=== PATIENT | female | born 1965 | race Caucasian/White ===

== ENCOUNTER → 2017-02-22 | Outpatient (CLI) | payer BC ==
--- NOTE | 2017-02-23 08:56 | MM ---
Reason for exam: screening (asymptomatic). Last mammogram was performed 2 years and 4 months ago. History: Patient is postmenopausal. Physical Findings: A clinical breast exam by your physician is recommended on an annual basis and results should be correlated with mammographic findings. MG Screening Mammo w CAD Bilateral CC and MLO view(s) were taken. Prior study comparison: October 23, 2014, bilateral MG screening mammo w CAD. December 29, 2009, bilateral digital screening mammogram. There are scattered fibroglandular densities. Focal distortion central right breast. ASSESSMENT: Incomplete: need additional imaging evaluation, BI-RAD 0 RECOMMENDATION: Special view mammogram of the right breast. If lesion persists on supplemental views, image directed ultrasound is recommended. [facility] will attempt to contact patient to return for supplemental views and ultrasound if indicated.
== END | disposition home or self-care (01) ==
LOC: RADMAMWWP 13:35
PROVIDERS: ATTEND Family Medicine
DX: Z12.31 Encounter for screening mammogram for malignant neoplasm of breast (principal); R92.8 Other abnormal and inconclusive findings on diagnostic imaging of breast

== ENCOUNTER → 2017-02-25 | Outpatient (CLI) | payer BC ==
--- NOTE | 2017-02-28 09:42 | MM ---
Reason for exam: additional evaluation requested from abnormal screening. Last mammogram was performed less than 1 month ago. History: Patient is postmenopausal. Physical Findings: Nurse did not find any significant physical abnormalities on exam. MG Work Up Mamm w CAD RT ML, spot compression MLO, and spot compression CC view(s) were taken of the right breast. Prior study comparison: February 22, 2017, bilateral MG screening mammo w CAD. October 23, 2014, bilateral MG screening mammo w CAD. Finding: There is a 8 mm equal density (isodense) mass in the subareolar central position of the right breast. These results were verbally communicated with the patient and result sheet given to the patient on 02/25/17. ASSESSMENT: Suspicious, BI-RAD 4 RECOMMENDATION: Stereotactic core biopsy of the right breast. Called Dr. Meyers with mammographic findings and has scheduled an appointment for the patient for 03/14/17 at 9:[address] Orr. PRELIMINARY REPORT CALLED AND FAXED TO DR. ORR ON 02/28/17 AT 300/TP.
== END | disposition home or self-care (01) ==
LOC: RADMAMWWP 15:00
PROVIDERS: ATTEND Family Medicine
DX: R92.8 Other abnormal and inconclusive findings on diagnostic imaging of breast (principal)

== ENCOUNTER → 2017-03-18 | Day surgery (SDC) | payer BC ==
--- NOTE | 2017-03-18 09:02 | MM ---
EXAMINATION TYPE: MG discontinued stereo core RT DATE OF EXAM: 03/18/2017 8:36 AM COMPARISON: 02/25/2017 and 02/22/2017 CLINICAL HISTORY: 51-year-old female abnormal mammogram referred for stereotactic core needle biopsy of the right TECHNIQUE and FINDINGS: The patient was placed in MLO compression on the stereotactic table. Breast tissue landmarks were uti lized to ensure the appropriate area was positioned within the target window. A target for biopsy cou ld not be secured. Stereotactic guided core biopsy was discontinued. Recommend ultrasound of the lower outer quadrant right breast for further evaluation. If no sonograph ic abnormality is seen, a 6 month follow-up mammogram will be recommended. Findings and impression were discussed with the patient. IMPRESSION: BI-RADS 0-incomplete assessment RECOMMENDATION: Targeted right breast ultrasound lower outer quadrant 6:00 to 9:00.
--- NOTE | 2017-03-21 11:41 | USB ---
Reason for exam: additional evaluation requested from abnormal screening. History: Patient is postmenopausal. MG discontinued stereo core RT of the right breast, March 18, 2017. US Breast Limited RT Right breast ultrasound demonstrates no cystic or solid lesion seen. The mammographic finding cab be reassessed in 6 months. These results were verbally communicated with the patient and result sheet given to the patient on 03/18/17. ASSESSMENT: Probably benign, BI-RAD 3 RECOMMENDATION: Follow-up diagnostic mammogram of the right breast in 6 months.
== END ==
LOC: RADMAMWWP 07:40
PROVIDERS: ATTEND Surgery
DX: R92.8 Other abnormal and inconclusive findings on diagnostic imaging of breast (principal); Z53.8 Procedure and treatment not carried out for other reasons; Z78.0 Asymptomatic menopausal state

== ENCOUNTER 2017-09-20 08:00 | Day surgery (SDC) | payer BC ==
[2017-09-16 11:55] VITALS: BMI 24.4
[2017-09-20 08:12] VITALS: TEMP 97.2
[2017-09-20] MEDS ORDERED: LIDOCAINE 1% 20 ML VIAL (10MG/ML) FOR IV START INTRADERMA ONE (08:12)
[2017-09-20] MEDS: LACTATED RINGERS 1,000 ML IV SCH ×2 (08:12→09:09)
[2017-09-20] MEDS ORDERED: LIDOCAINE 1% INJ 10MG/ML (20 ML MDV) ONE (09:11)
[2017-09-20] MEDS ORDERED: PROPOFOL 10 MG/ML 20 ML VIAL IV ONE (09:11)
--- NOTE | 2017-09-20 09:42 | P.PCN ---
Date of Procedure: 09/20/17 Procedure(s) Performed: Procedure: Total colonoscopy. Preoperative diagnosis: Screening for neoplasia. Postoperative diagnosis: Examination within normal limits. Preparation: HalfLytely prep. Sedation: Was provided by anesthesia. Brief clinical history: The patient is a 52-year-old female who is referred for this evaluation for screening for neoplasia age being her risk factor. She has no abdominal complaints or family history of colon cancer. She did have a diarrheic illness within the last few weeks and she had some bleeding around that time but she is now back to her usual 1 regular bowel movement a day. Procedure: With the patient on her left lateral decubitus position and after informed consent and adequate sedation, the perianal area was inspected and it did not show any fissures or fistulas. There were no masses felt on digital rectal examination. The Olympus CFQ 160L video colonoscope was then inserted in the rectum in the usual fashion and advanced to the cecum. The preparation was good. The mucosa appeared healthy. No polyps or tumors were seen or any obvious diverticular disease or other potential sources of bleeding. The patient tolerated the procedure well. Plan: The patient was reassured. She will follow-up with you as planned and I recommended repeat exam in 10 years.
[2017-09-20 10:03] VITALS: BP 115/71; PULSE 72; RESP 18
== END 2017-09-20 10:08 | disposition home or self-care (01) ==
LOC: ORWHC2ENDO 08:00
DX: Z12.11 Encounter for screening for malignant neoplasm of colon (principal); I10 Essential (primary) hypertension; Z79.899 Other long term (current) drug therapy; Z87.891 Personal history of nicotine dependence
CPT/HCPCS: J2001; J2704; G0121

== ENCOUNTER → 2018-01-19 | Outpatient (CLI) | payer BC ==
--- NOTE | 2018-01-19 12:12 | MM ---
Reason for exam: follow-up at short interval from prior study. Last mammogram was performed 11 months ago. History: Patient is postmenopausal. MG discontinued stereo core RT of the right breast, March 18, 2017. Physical Findings: Nurse did not find any significant physical abnormalities on exam. MG Diagnostic Mammo RT w CAD CC and MLO view(s) were taken of the right breast. Prior study comparison: February 25, 2017, right breast MG work up mamm w CAD RT. February 22, 2017, bilateral MG screening mammo w CAD. There are scattered fibroglandular densities. The central asymmetric density on MLO is unchanged from 2014. This completely disperses on spot MLO view. These results were verbally communicated with the patient and result sheet given to the patient on 01/19/18. ASSESSMENT: Negative, BI-RAD 1 RECOMMENDATION: Routine screening mammogram of both breasts in 6 months.
== END | disposition home or self-care (01) ==
LOC: RADMAMWWP 09:09
PROVIDERS: ATTEND Family Medicine
DX: R92.8 Other abnormal and inconclusive findings on diagnostic imaging of breast (principal)
CPT/HCPCS: 77065

== ENCOUNTER 2018-09-24 13:45 | Emergency (ER) | payer BC ==
[2018-09-24 13:51] VITALS: BP 132/83; PULSE 95; RESP 18
--- NOTE | 2018-09-24 14:40 | ED ---
General Adult HPI - General Chief complaint: Extremity Problem,Nontraumatic Stated complaint: lt hand swelling & pain Time Seen by Provider: 09/24/18 14:05 Source: patient, RN notes reviewed Mode of arrival: ambulatory Limitations: no limitations - History of Present Illness Initial comments: 53-year-old female presents to the emergency department for a chief complaint of left hand pain and erythema 2 days. Patient states pain is worse in the distal aspect of the left fifth metacarpal. She states it is painful to press on. She denies any pain in the wrist. She denies any pain in the palmar aspect of the left hand. She denies any fevers or chills at home. Patient denies any history of diabetes. She denies any injuries to the left hand. Patient has no other complaints at this time including shortness of breath, chest pain, abdominal pain, nausea or vomiting, headache, or visual changes. - Related Data Home Medications Medication Instructions Recorded Confirmed Hydrochlorothiazide [Hydrodiuril] 25 mg PO DAILY 05/02/16 09/20/17 Loratadine [Claritin] 10 mg PO DAILY 05/02/16 09/20/17 Previous Rx's Medication Instructions Recorded Cephalexin [Keflex] 500 mg PO Q6HR 10 Days cap 09/24/18 Allergies Allergy/AdvReac Type Severity Reaction Status Date / Time No Known Allergies Allergy Verified 09/24/18 13:51 Review of Systems ROS Statement: Those systems with pertinent positive or pertinent negative responses have been documented in the HPI. ROS Other: All systems not noted in ROS Statement are negative. Past Medical History Past Medical History: Hypertension Additional Past Medical History / Comment(s): DDD, HX OF BLOOD IN STOOL. History of Any Multi-Drug Resistant Organisms: None Reported Past Surgical History: Section Additional Past Surgical History / Comment(s): X3, ENDOMETRIOSIS SURGERY. Past Anesthesia/Blood Transfusion Reactions: No Reported Reaction Past Psychological History: No Psychological Hx Reported Smoking Status: Current some day smoker Past Alcohol Use History: Occasional Past Drug Use History: None Reported - Past Family History Father Family Medical History: Cancer Additional Family Medical History / Comment(s): ESOPHAGEAL CANCER General Exam Limitations: no limitations General appearance: alert, in no apparent distress Head exam: Present: atraumatic, normocephalic, normal inspection Eye exam: Present: normal appearance, PERRL, EOMI. Absent: scleral icterus, conjunctival injection, periorbital swelling ENT exam: Present: normal exam, mucous membranes moist Neck exam: Present: normal inspection, full ROM. Absent: tenderness, meningismus, lymphadenopathy Respiratory exam: Present: normal lung sounds bilaterally. Absent: respiratory distress, wheezes, rales, rhonchi, stridor Cardiovascular Exam: Present: regular rate, normal rhythm, normal heart sounds. Absent: systolic murmur, diastolic murmur, rubs, gallop, clicks Extremities exam: Present: full ROM (Full Range motion of the left hand and wrist. Full range of motion of all fingers in the left hand.), tenderness ( Mild tenderness over the dorsal fifth metacarpal of the left hand), normal capillary refill (Capillary refill less than 2 seconds and radial pulse 2+ in the left upper extremity), other (Erythema noted of the left dorsal fifth metacarpal x-ray from the DIP joint to the wrist. No streaking redness or evidence of lymphangitis. Area is warm to touch and mildly tender.) Neurological exam: Present: alert, oriented X3, CN II-XII intact Psychiatric exam: Present: normal affect, normal mood Course Vital Signs 09/24/18 13:48 Temperature 98.1 F Pulse Rate 95 Respiratory 18 Rate Blood Pressure 132/83 O2 Sat by Pulse 98 Oximetry Medical Decision Making - Medical Decision Making 53-year-old female presents to the emergency department for a chief complaint erythema to the dorsal fifth metacarpal of the left hand 2 days. As her stable and patient is afebrile. She is well-appearing alert and responsive. Patient has full range motion the left hand. No pain with flexion or extension actively or passively of the fifth digit. No suspicion of tenosynovitis at this time. Neurovascular intact. X-ray was negative aside for calcification of possible or injury. She'll be given Keflex. She was educated to watch for any worsening symptoms and did discuss to watch for symptoms of tenosynovitis or fever and to return if these occur. She will follow up with primary care in 1-[address] Byrnes also saw the patient Disposition Clinical Impression: Cellulitis Disposition: HOME SELF-CARE Condition: Good Instructions: Cellulitis (ED) Additional Instructions: Please follow up with neurobiologist in 1-2 days. Please take antibiotic as directed. Please return if you have any worsening symptoms or fevers. Prescriptions: Cephalexin [Keflex] 500 mg PO Q6HR 10 Days cap Is patient prescribed a controlled substance at d/c from ED?: No Referrals: Sade Meyers MD [Primary Care Provider] - 1-2 days Time of Disposition: 16:12
--- NOTE | 2018-09-24 15:32 | XR ---
EXAMINATION TYPE: XR wrist complete LT DATE OF EXAM: 09/24/2018 COMPARISON: NONE HISTORY: Wrist pain TECHNIQUE: 4 views FINDINGS: The carpal bones appear intact. I see no fracture nor dislocation. There is a 4 mm calcific ation at the fifth carpometacarpal joint that could relate to an old injury. Joint spaces are fairly normal. Distal radius and ulna appear intact. IMPRESSION: No acute abnormality of the left wrist.
--- NOTE | 2018-09-24 15:33 | XR ---
EXAMINATION TYPE: XR hand complete LT DATE OF EXAM: 09/24/2018 COMPARISON: NONE HISTORY: Pain and swelling TECHNIQUE: 3 views FINDINGS: Metacarpals are intact. I see no fracture nor dislocation. There is minor spurring at the f irst carpometacarpal joint. There is rounded calcification at the fifth carpometacarpal joint consist ent with old injury. IMPRESSION: No acute abnormality of the left hand.
[2018-09-24 16:18] VITALS: TEMP 98
== END 2018-09-24 16:17 | disposition home or self-care (01) ==
LOC: EC 13:45
DX: L03.114 Cellulitis of left upper limb (principal); I10 Essential (primary) hypertension; F17.200 Nicotine dependence, unspecified, uncomplicated; Z79.899 Other long term (current) drug therapy
CPT/HCPCS: 99283

== ENCOUNTER → 2019-06-19 | Outpatient (CLI) | payer BC ==
[2019-06-19 16:06] LABS: Basophils % (A) 1 %; Eosinophils # (A) 0.2 k/uL (0-0.7); Eosinophils % (A) 3 %; HCT 40.2 % (34.0-46.0); Lymphocytes # (A) 2.2 k/uL (1.0-4.8); Lymphocytes % (A) 36 %; MCH 28.9 pg (25.0-35.0); MCHC 32.4 g/dL (31.0-37.0); MCV 89.4 fL (80.0-100.0); Mean Platelet Volume 7.2; Monocytes # (A) 0.3 k/uL (0-1.0); Monocytes % (A) 4 %; Neutrophils # (A) 3.2 k/uL (1.3-7.7); Neutrophils % (A) 53 %; Platelet Count 315 k/uL (150-450); RDW 13.6 % (11.5-15.5); WBC 6.1 k/uL (3.8-10.6)
[2019-06-19 16:16] LABS: African American GFR (CKD) >90 (>60 ml/min/1.73 sqM); Anion Gap 8 mmol/L; Blood Urea Nitrogen 10 mg/dL (7-17); Carbon Dioxide 27 mmol/L (22-30); Chloride 107 mmol/L (98-107); Glucose 99 mg/dL (74-99); Potassium 4.4 mmol/L (3.5-5.1); Sodium 142 mmol/L (137-145)
== END | disposition home or self-care (01) ==
LOC: LABPAT 15:34
PROVIDERS: ATTEND Obstetrics & Gynecology
DX: Z01.818 Encounter for other preprocedural examination (principal); Z01.812 Encounter for preprocedural laboratory examination; I10 Essential (primary) hypertension; N81.6 Rectocele
CPT/HCPCS: 36415; 80051; 82565; 82947; 84520; 85025; 86850; 86900; 86901; 87086; 93005

== ENCOUNTER 2019-06-25 08:11 | Day surgery (SDC) | payer BC ==
[~2019-06-25 08:11] MED LIST: DEXAMETHASONE SOD PHOSPHATE 10 MG/ML 1 ML VIAL IV ONE; HYDROmorphone 0.5 MG/0.5 ML SYRINGE IVP PRN; MIDAZOLAM 2 MG/2 ML VIAL IV PRN; ONDANSETRON 4 MG/2 ML VIAL IVP ONE
[2019-06-25] MEDS ORDERED: LACTATED RINGERS 1,000 ML IV ONE (08:30)
[2019-06-25] MEDS ORDERED: SIMETHICONE 80 MG CHEWABLE PO PRN (09:44)
[2019-06-25] MEDS ORDERED: MIDAZOLAM 2 MG/2 ML VIAL ONE (09:44)
[2019-06-25] MEDS ORDERED: PROPOFOL 10 MG/ML 20 ML VIAL IV ONE (09:44)
[2019-06-25] MEDS ORDERED: fentaNYL (PF) 50 MCG/ML 2 ML AMP ONE (09:44)
[2019-06-25] MEDS ORDERED: diphenhydrAMINE 50 MG/ML 1 ML VIAL IVP PRN (09:44)
[2019-06-25] MEDS ORDERED: KETOROLAC 30 MG/ML 1 ML VIAL IVP PRN (09:44)
[2019-06-25] MEDS ORDERED: Acetaminophen-Codeine 300-30mg TAB PO PRN ×2 (09:44)
[2019-06-25] MEDS ORDERED: KETOROLAC 30 MG/ML 1 ML VIAL ONE (09:44)
[2019-06-25] MEDS ORDERED: IBUPROFEN 600 MG TAB PO PRN (09:44)
[2019-06-25] MEDS ORDERED: LIDOCAINE 1% INJ 10MG/ML (20 ML MDV) ONE (09:44)
[2019-06-25] MEDS ORDERED: ONDANSETRON 4 MG/2 ML VIAL IVP PRN (09:44)
[2019-06-25] MEDS ORDERED: METOCLOPRAMIDE 5 MG/ML 2 ML VIAL IVP PRN (09:44)
[2019-06-25] MEDS ORDERED: SODIUM CHLORIDE 0.9% 100 ML with ceFAZolin 2,000 MG IV ONE ×2 (09:56)
[2019-06-25] MEDS ORDERED: VASOPRESSIN 20 UNIT/ML 1 ML VIAL SQ ONE (10:03)
[2019-06-25] MEDS ORDERED: BACITRACIN 500 UNIT/GM OINT 28.4 GM TUBE TOPICAL ONE ×2 (10:08→10:19)
--- NOTE | 2019-06-25 10:30 | P.OP ---
Date of Procedure: 06/25/19 Preoperative Diagnosis: #1. Symptomatic grade 3+ rectocele Postoperative Diagnosis: Same Procedure(s) Performed: #1. Rectocele repair Anesthesia: other (Gen. by LMA) Surgeon: Juancarlos Berman Senior Media Planner #1: Aaliyah Bowman Estimated Blood Loss (ml): 20 IV fluids (ml): 400 Urine output (ml): 50 Pathology: none sent Condition: stable Disposition: PACU Operative Findings: Preoperative pelvic examination confirmed the findings noted in H&P with a grade 3+ rectocele present but otherwise good support of the uterus and bladder. Description of Procedure: The patient was prepped and draped in usual fashion after general anesthesia was administered by the anesthesiologist. The bladder was draining approximately 40 mL of clear tamiko urine. The margins of the hymeneal ring were grasped at the intended site of closure bilaterally in a triangular shape wedge of skin on the perineal body removed with a scalpel. The rectovaginal mucosa was infused with diluted vasopressin solution from the perineum to the apex of the intended repair at the top of the vagina. The mucosa was then undermined in the midline and divided using Metzenbaum scissors to the apex with Allis clamps placed along the margins on each side. The mucosa was dissected sharply and bluntly from the underlying tissues. After adequate dissection had been carried out bilaterally, serial Arianna plication stitches were placed from the apex of the repair to the perineum using 2-0 PDS. Any small points of bleeding were made hemostatic with the Bovie. Once the repair been completed, the redundant vaginal mucosa was trimmed and the mucosa closed with a running locking stitch of 2-0 Vicryl and perineal repair was continuous with the vaginal U Koza closure using the 2-0 Vicryl in standard fashion. The vagina was packed with one-inch iodophor covered with bacitracin ointment and the bladder catheterized with a Larsen catheter at which time clear urine was again noted. All sponge, instrument, needle counts were correct. There were no complications. The patient tolerated the procedure well and proceeded to the recovery room in stable condition.
[2019-06-25] MEDS: LACTATED RINGERS 1,000 ML IV SCH ×3 (11:50→20:00)
[2019-06-25 15:15] VITALS: BMI 24.3
[2019-06-25] MEDS: SENNOSIDES-DOCUSATE SODIUM 1 EACH TAB PO SCH (21:11)
[2019-06-26] MEDS: LACTATED RINGERS 1,000 ML IV SCH ×2 (06:26→06:27)
[2019-06-26 07:42] LABS: Basophils % (A) 0 %; Eosinophils % (A) 0 %; HCT 36.2 % (34.0-46.0); HGB 11.8 gm/dL (11.4-16.0); Lymphocytes # (A) 2.1 k/uL (1.0-4.8); Lymphocytes % (A) 19 %; MCH 29.6 pg (25.0-35.0); MCHC 32.7 g/dL (31.0-37.0); MCV 90.5 fL (80.0-100.0); Mean Platelet Volume 7.6; Monocytes # (A) 0.6 k/uL (0-1.0); Monocytes % (A) 5 %; Neutrophils # (A) 8.3 k/uL (1.3-7.7); Neutrophils % (A) 74 %; Platelet Count 302 k/uL (150-450); RDW 14.9 % (11.5-15.5); WBC 11.3 k/uL (3.8-10.6)
[2019-06-26 08:14] VITALS: BP 109/71; PULSE 84; RESP 18; TEMP 98.1
[2019-06-26] MEDS: SENNOSIDES-DOCUSATE SODIUM 1 EACH TAB PO SCH (08:15)
--- NOTE | 2019-06-26 08:26 | P.DS ---
Providers Expected date of discharge: 06/26/19 Attending physician: Juancarlos Berman Primary care physician: Sade Meyers - Discharge Diagnosis(es) (1) Rectocele Current Visit: Yes Status: Acute Hospital Course: The patient is a 53-year-old multiparous woman who was referred after an incidental finding of a rectocele at routine annual examination. Examination before out a grade 3+ rectocele present with no significant cystocele or uterine prolapse of any kind. The patient requested surgical repair was taken the operating room where she underwent a rectocele repair and an incompetent fashion. Her postoperative course was uncomplicated as well with vital signs being stable and her temperature was afebrile throughout. She was tolerating regular diet by the afternoon of surgery and had her packing and catheter removed the following morning. She was deemed stable for discharge on postoperative day #1 was discharged home to follow-up in the office in 2 weeks for recheck in 6 weeks routinely. Discharge instructions included calling for any significantly increased bleeding, fever, pain, problems with the repair, or anything else that concerned her. She is additionally instructed to do no heavy lifting over the next 6 weeks of anything greater than approximate 10 pounds and to abstain from intercourse over the same period of time. She understood all of her instructions and agrees follow up as noted above. Discharge medications included only her home medications as well as [id number] analgesic pain medications as needed. Hemoglobin and hematocrit were entirely stable from preoperative evaluation. Procedures: #1. Rectocele repair Patient Condition at Discharge: Good Plan - Discharge Summary Discharge Rx Participant: No New Discharge Prescriptions: No Action Loratadine [Claritin] 10 mg PO DAILY Hydrochlorothiazide [Hydrodiuril] 25 mg PO DAILY Lisinopril [Zestril] 10 mg PO DAILY Red Yeast Rice 600 mg PO DAILY Multivitamin/Iron/Folic Acid [Centrum Women Tablet] 1 each PO DAILY Discharge Medication List Hydrochlorothiazide [Hydrodiuril] 25 mg PO DAILY 05/02/16 [History] Loratadine [Claritin] 10 mg PO DAILY 05/02/16 [History] Lisinopril [Zestril] 10 mg PO DAILY 06/20/19 [History] Multivitamin/Iron/Folic Acid [Centrum Women Tablet] 1 each PO DAILY 06/20/19 [History] Red Yeast Rice 600 mg PO DAILY 06/20/19 [History] Follow up Appointment(s)/Referral(s): Juancarlos Berman MD [STAFF PHYSICIAN] - 2 Weeks Patient Instructions/Handouts: Posterior Vaginal Repair (DC), Pain Management After Surgery (DC) Activity/Diet/Wound Care/Special Instructions: No lifting, no tub baths, no sexual intercourse, nothing in the vagina. May shower. Call Dr Berman if you have fever, chills, increase pain, vaginal bleeding, or if you have any other concerns or questions. May use over the counter stool softener. Discharge Disposition: HOME SELF-CARE
[2019-06-26] MEDS ORDERED: HYDROCHLOROTHIAZIDE 25 MG TAB PO SCH (09:00)
[2019-06-26] MEDS ORDERED: LISINOPRIL 10 MG TAB PO SCH (09:00)
== END 2019-06-26 09:10 | disposition home or self-care (01) ==
LOC: OR 08:11 → 6PED 10:34 → OR 06-26 09:10
PROVIDERS: ATTEND Obstetrics & Gynecology
DX: N81.6 Rectocele (principal); I10 Essential (primary) hypertension; B00.9 Herpesviral infection, unspecified; F17.210 Nicotine dependence, cigarettes, uncomplicated; Z79.899 Other long term (current) drug therapy
CPT/HCPCS: 57250; 85025; J2250; J1100; J2405; J0690; J2001; J3010; J1885; J2704; 86850; 86900; 86901

== ENCOUNTER 2020-04-07 18:36 | Emergency (ER) | payer BC ==
[2020-04-07 18:42] VITALS: BP 137/82; PULSE 77; RESP 18; TEMP 98.7
[2020-04-07] MEDS ORDERED: LIDOCAINE 5% PATCH TOPICAL STA (18:54)
--- NOTE | 2020-04-07 18:59 | ED ---
General Adult HPI - General Chief complaint: Back Pain/Injury Stated complaint: L Ribs Pain Time Seen by Provider: 04/07/20 18:44 Source: patient, RN notes reviewed Mode of arrival: ambulatory Limitations: no limitations - History of Present Illness Initial comments: 54-year-old female with a past medical history of hypertension, degenerative disc disease presents to the emergency department for a chief complaint of left anterior lower rib pain. Patient states that a couple days ago she was painting a car be. States that she was leaning on the edge of the wall when she felt a sudden pain in her left anterior ribs. States has been painful since that time. She is a hurts to breathe in the areas. States it hurts to lean forward or twist. States when there is any pressure applied to the area it causes pain. Denies any abdominal pain. Denies chest pain. Patient denies any other injuries. States her wanted her to come to the emergency room.Patient has no other complaints at this time including shortness of breath, chest pain, abdominal pain, nausea or vomiting, headache, or visual changes. - Related Data Home Medications Medication Instructions Recorded Confirmed Hydrochlorothiazide [Hydrodiuril] 25 mg PO DAILY 05/02/16 06/25/19 Loratadine [Claritin] 10 mg PO DAILY 05/02/16 06/25/19 Lisinopril [Zestril] 10 mg PO DAILY 06/20/19 06/25/19 Multivitamin/Iron/Folic Acid 1 each PO DAILY 06/20/19 06/25/19 [Centrum Women Tablet] Red Yeast Rice 600 mg PO DAILY 06/20/19 06/25/19 Allergies Allergy/AdvReac Type Severity Reaction Status Date / Time No Known Allergies Allergy Verified 04/07/20 18:42 Review of Systems ROS Statement: Those systems with pertinent positive or pertinent negative responses have been documented in the HPI. ROS Other: All systems not noted in ROS Statement are negative. Past Medical History Past Medical History: Hypertension Additional Past Medical History / Comment(s): DDD, HX OF BLOOD IN STOOL. History of Any Multi-Drug Resistant Organisms: None Reported Past Surgical History: Section Additional Past Surgical History / Comment(s): X3, ENDOMETRIOSIS SURGERY. bilateral eye procedures for glaucoma Past Anesthesia/Blood Transfusion Reactions: No Reported Reaction Past Psychological History: No Psychological Hx Reported Smoking Status: Former smoker Past Alcohol Use History: Occasional Past Drug Use History: None Reported - Past Family History Father Family Medical History: Cancer Additional Family Medical History / Comment(s): ESOPHAGEAL CANCER General Exam Limitations: no limitations General appearance: alert, in no apparent distress Head exam: Present: atraumatic, normocephalic, normal inspection Eye exam: Present: normal appearance, PERRL, EOMI. Absent: scleral icterus, conjunctival injection, periorbital swelling ENT exam: Present: normal exam, mucous membranes moist Neck exam: Present: normal inspection, full ROM. Absent: tenderness, meningismus, lymphadenopathy Respiratory exam: Present: normal lung sounds bilaterally, chest wall tenderness (Patient has left anterior inferior costal margin tenderness. There is no ecchymosis. No tenting.). Absent: respiratory distress, wheezes, rales, rhonchi, stridor Cardiovascular Exam: Present: regular rate, normal rhythm, normal heart sounds. Absent: bradycardia, tachycardia, irregular rhythm GI/Abdominal exam: Present: soft, normal bowel sounds. Absent: distended, tenderness (No left upper quadrant or abdominal tenderness.), guarding, rebound, rigid Neurological exam: Present: alert Course Vital Signs 04/07/20 18:39 Temperature 98.7 F Pulse Rate 77 Respiratory 18 Rate Blood Pressure 137/82 O2 Sat by Pulse 98 Oximetry Medical Decision Making - Medical Decision Making Vitals are stable. HPI and physical exam as documented. No respiratory distress. X-ray of the chest with left rib study shows no acute processes. No evidence for pneumothorax. Patient likely has contusion of the costal margin. Patient did not want any IM or oral pain medications throughout her stay. States it did not hurt when she is not moving. She did agree to a lidocaine patch. Patient was given incentive spirometer by respiratory. Discussed taking deep breaths 10 times per hour to prevent pneumonia. Discussed taking Tylenol f or pain. She is not on any additional pain medications. She will return for any worsening symptoms. Otherwise she'll follow-up with primary care. Disposition Clinical Impression: Contusion of rib on left side Disposition: HOME SELF-CARE Condition: Good Instructions (If sedation given, give patient instructions): Rib Contusion (ED) Additional Instructions: Please take Tylenol for pain. Use lidocaine patches as directed. Apply one patch for 12 hours and then remove for 12 hours before applying the second patch. Use inceptive spirometer every hour while awake. Return to the emergency room for any worsening symptoms. Is patient prescribed a controlled substance at d/c from ED?: No Referrals: Sade Meyers MD [Primary Care Provider] - 1-2 days Time of Disposition: 19:23
--- NOTE | 2020-04-07 19:18 | XR ---
EXAMINATION TYPE: XR ribs LT w pa chest x-ray DATE OF EXAM: 04/07/2020 CLINICAL HISTORY: Chest and left-sided rib pain for 3 days. TECHNIQUE: Single frontal view of the chest is obtained. A frontal and oblique images of the left-sneha ed ribs. COMPARISON: None FINDINGS: There is chronic painful change without suspicious new focal air space opacity, pleural ef fusion, or pneumothorax seen. The cardiac silhouette size is within normal limits. The osseous str uctures are intact. Dedicated images of left-sided ribs show no acute displaced fractures. Overlying soft tissue is unrem arkable. IMPRESSION: 1. No acute cardiopulmonary process. 2. No acute displaced left-sided rib fractures are seen.
== END 2020-04-07 19:43 | disposition home or self-care (01) ==
LOC: EC 18:36
DX: S20.212A Contusion of left front wall of thorax, initial encounter (principal); I10 Essential (primary) hypertension; Z87.891 Personal history of nicotine dependence; Z79.899 Other long term (current) drug therapy; X58.XXXA Exposure to other specified factors, initial encounter; Y93.89 Activity, other specified
CPT/HCPCS: 99283

== ENCOUNTER → 2021-01-27 | Outpatient (CLI) | payer BC | END | disposition home or self-care (01) | LOC: LABWHC1 16:43 | PROVIDERS: ATTEND Family Medicine | DX: Z20.828 Contact with and (suspected) exposure to other viral communicable diseases (principal); J11.1 Influenza due to unidentified influenza virus with other respiratory manifestations | CPT/HCPCS: 87502; U0003; C9803; U0005 ==

== ENCOUNTER 2022-08-16 19:55 | Observation (INO) | payer BC ==
[2022-08-16] MEDS ORDERED: ASPIRIN 81 MG PO STA (23:51)
--- NOTE | 2022-08-16 23:54 | ED ---
Chest Pain HPI - General Chief Complaint: Chest Pain Stated Complaint: Chest Pain,Dizzy,Sweating Source: family, RN notes reviewed Mode of arrival: wheelchair Limitations: no limitations - History of Present Illness Initial Comments: This is a pleasant 56-year-old female with a history of hypertension. She presents to the emergency department today complaining of intermittent chest discomfort which has been going on for about 2 weeks. Patient states that when she exerts she is experiencing chest heaviness, fatigue, and sometimes diaphoresis. This seems to be only when she is exerting. Patient works as a assessor. Patient was also working around the house and felt this. Symptoms do not seem to be appearing at rest. His cardiac testing. patient is a previous cigarette smoker and currently vapes. Currently treated for hypertension. Patient states that her mother had a mild cardiac arrhythmia but no cardiovascular disease otherwise. Intermittent fatigue with diaphoresis,No headache, no fever or chills, no changes in vision or hearing, no sore throat or difficulty with speech, no neck pain, no cshortness of breath, no abdominal pain, no nausea or vomiting, no changes in urination or bowel movements, no numbness or tingling, no extremity pain, no skin rashes or lesions. - Related Data Home Medications Medication Instructions Recorded Confirmed Loratadine [Claritin] 10 mg PO DAILY 05/02/16 06/25/19 hydroCHLOROthiazide [Hydrodiuril] 25 mg PO DAILY 05/02/16 06/25/19 Multivitamin/Iron/Folic Acid 1 each PO DAILY 06/20/19 06/25/19 [Centrum Women Tablet] Red Yeast Rice 600 mg PO DAILY 06/20/19 06/25/19 lisinopriL [Zestril] 10 mg PO DAILY 06/20/19 06/25/19 Previous Rx's Medication Instructions Recorded Lidocaine 5% Patch [Lidoderm 5% 1 patch TOPICAL DAILY PRN 10 Days 04/07/20 Patch] #10 patch Allergies Allergy/AdvReac Type Severity Reaction Status Date / Time No Known Allergies Allergy Verified 08/16/22 20:03 Review of Systems ROS Statement: Those systems with pertinent positive or pertinent negative responses have been documented in the HPI. ROS Other: All systems not noted in ROS Statement are negative. EKG Findings - EKG Comments: EKG Findings:: EKG done at 8:07 PM and read by the ED attending physician reveals sinus rhythm with a rate of 76. Normal intervals. Normal axis. No acute respiratory pathology. No acute ST or T-wave changes. Past Medical History Past Medical History: Hypertension Additional Past Medical History / Comment(s): DDD, HX OF BLOOD IN STOOL. History of Any Multi-Drug Resistant Organisms: None Reported Past Surgical History: Section Additional Past Surgical History / Comment(s): X3, ENDOMETRIOSIS SURGERY. bilateral eye procedures for glaucoma Past Anesthesia/Blood Transfusion Reactions: No Reported Reaction Past Psychological History: No Psychological Hx Reported Smoking Status: Vaper Past Alcohol Use History: Occasional Past Drug Use History: None Reported - Past Family History Father Family Medical History: Cancer Additional Family Medical History / Comment(s): ESOPHAGEAL CANCER General Exam - General Exam Comments Initial Comments: Vital signs stable, patient afebrile. Patient does not appear to be ill or toxic. Limitations: no limitations General appearance: alert, in no apparent distress Head exam: Present: atraumatic, normocephalic, normal inspection Eye exam: Present: normal appearance, PERRL, EOMI. Absent: scleral icterus, conjunctival injection, periorbital swelling ENT exam: Present: normal exam, normal oropharynx, mucous membranes moist, normal external ear exam. Absent: mucous membranes dry Neck exam: Present: normal inspection, full ROM. Absent: tenderness, meningismus, lymphadenopathy Respiratory exam: Present: normal lung sounds bilaterally. Absent: respiratory distress, wheezes, rales, rhonchi, stridor, chest wall tenderness, accessory muscle use, decreased breath sounds, prolonged expiratory Cardiovascular Exam: Present: regular rate, normal rhythm, normal heart sounds. Absent: systolic murmur, diastolic murmur, rubs, gallop, clicks GI/Abdominal exam: Present: soft, normal bowel sounds. Absent: distended, tenderness, guarding, rebound, rigid Extremities exam: Present: normal inspection, full ROM, normal capillary refill. Absent: tenderness, pedal edema, joint swelling, calf tenderness Back exam: Present: normal inspection Neurological exam: Present: alert, oriented X3, CN II-XII intact Psychiatric exam: Present: normal affect, normal mood Skin exam: Present: warm, dry, intact, normal color. Absent: rash Course Vital Signs 08/16/22 20:00 Temperature 98 F Pulse Rate 84 Respiratory 20 Rate Blood Pressure 130/74 O2 Sat by Pulse 97 Oximetry - Reevaluation(s) Reevaluation #1: 08/17/22 01:39 Medical record is reviewed Patient asymptomatic Patient is informed of results and questions answered Patient in no distress - Consultations Consultation #1: Case discussed in detail with Dr. Clements from [facility]. Patient admitted for chest pain rule out and cardiology consultation Chest Pain MDM - MDM The case was discussed in detail with ED attending physician. Presentation, findings, treatment plan discussed in detail. Visual need be admitted for what sounds like exertional chest discomfort. EKG was nondiagnostic. Awaiting laboratory investigations. Disposition Clinical Impression: Chest pain, exertional Disposition: ADMITTED IP TO THIS HOSP Referrals: Efrain Madison DO [Primary Care Provider] - 1-2 days Decision to Admit Reason: Admit from EC Decision Time: 23:53
--- NOTE | 2022-08-17 00:18 | XR ---
EXAMINATION TYPE: XR chest 1V portable DATE OF EXAM: 08/17/2022 COMPARISON: 04/07/2020 HISTORY: Chest pain TECHNIQUE: FINDINGS: Heart is normal. Lungs are clear of infiltrate. No heart failure. There are no hilar masses . Thoracic aorta is atheromatous. No pleural effusion. Bony thorax is intact. IMPRESSION: No active cardiopulmonary disease. Normal heart. No change.
[2022-08-17 00:54] LABS: Basophils # (A) 0.1 k/uL (0-0.2); Basophils % (A) 1 %; Eosinophils # (A) 0.2 k/uL (0-0.7); Eosinophils % (A) 3 %; HCT 40.1 % (34.0-46.0); HGB 13.3 gm/dL (11.4-16.0); Lymphocytes # (A) 3.6 k/uL (1.0-4.8); Lymphocytes % (A) 42 %; MCH 29.7 pg (25.0-35.0); MCHC 33.2 g/dL (31.0-37.0); MCV 89.4 fL (80.0-100.0); Mean Platelet Volume 7.5; Monocytes # (A) 0.5 k/uL (0-1.0); Monocytes % (A) 6 %; Neutrophils % (A) 47 %; Platelet Count 301 k/uL (150-450); RBC 4.48 m/uL (3.80-5.40); RDW 13.3 % (11.5-15.5); WBC 8.5 k/uL (3.8-10.6)
[2022-08-17 01:09] LABS: ALT 17 U/L (4-34); AST 27 U/L (14-36); African American GFR (CKD) >90 (>60 ml/min/1.73 sqM); Albumin 4.7 g/dL (3.5-5.0); Alkaline Phosphatase 65 U/L (38-126); Anion Gap 11 mmol/L; Blood Urea Nitrogen 21 mg/dL (7-17); Calcium 9.7 mg/dL (8.4-10.2); Carbon Dioxide 22 mmol/L (22-30); Chloride 103 mmol/L (98-107); Glucose 125 mg/dL (74-99); Non-African American GFR(CKD) >90 (>60 ml/min/1.73 sqM); Potassium 4.1 mmol/L (3.5-5.1); Sodium 136 mmol/L (137-145); Total Bilirubin 0.5 mg/dL (0.2-1.3); Total Protein 7.2 g/dL (6.3-8.2)
[2022-08-17] MEDS ORDERED: MORPHINE SULFATE 4 MG/ML SYRINGE IV PRN (01:36)
[2022-08-17] MEDS ORDERED: ACETAMINOPHEN TAB 325 MG TAB PO PRN (01:36)
[2022-08-17] MEDS ORDERED: NALOXONE 0.4 MG/ML 1 ML VIAL IV PRN (01:36)
[2022-08-17] MEDS ORDERED: ONDANSETRON 4 MG/2 ML VIAL IVP PRN (01:36)
--- NOTE | 2022-08-17 05:05 | P.HPIM ---
History of Present Illness H&P Date: 08/17/22 Chief Complaint: Chest pain 56-year-old female with hypertension Patient comes in with 2 week history of chest pain precipitated by exertion. Patient describing typical anginal chest pain. She is a [place] [facility] and she's been having some difficulties doing her job. Chest pain is precipitated by activity and exertion and goes away soon after she rests. These episodes she describes as squeezing pressure-like retrosternal chest pain spreads to her left shoulder associated with profuse sweating and difficulty in breathing but denies any dizziness palpitations nausea or vomiting. She has never had any cardiac workup in the past. She denies any fevers or chills denies any coughing or shortness of breath otherwise denies any abdominal pain nausea vomiting changes in bowel or urinary habits denies any recent travel her hospital stay denies any sick contact. Patient denies any history of GERD. She does admit to a pink but denies any drug abuse. She drinks a glass of wine every night. In the ED blood work overall was unremarkable Troponins negative Vital signs stable EKG no acute ST changes Review of Systems Pertinent positives as noted in HPI. All other systems were reviewed and are negative Past Medical History Past Medical History: Hypertension Additional Past Medical History / Comment(s): DDD, HX OF BLOOD IN STOOL. History of Any Multi-Drug Resistant Organisms: None Reported Past Surgical History: Section Additional Past Surgical History / Comment(s): X3, ENDOMETRIOSIS SURGERY. bilateral eye procedures for glaucoma Past Anesthesia/Blood Transfusion Reactions: No Reported Reaction Past Psychological History: No Psychological Hx Reported Smoking Status: Vaper Past Alcohol Use History: Occasional Past Drug Use History: None Reported - Past Family History Father Family Medical History: Cancer Additional Family Medical History / Comment(s): ESOPHAGEAL CANCER Medications and Allergies Home Medications Medication Instructions Recorded Confirmed Type Loratadine [Claritin] 10 mg PO DAILY 05/02/16 06/25/19 History hydroCHLOROthiazide [Hydrodiuril] 25 mg PO DAILY 05/02/16 06/25/19 History Multivitamin/Iron/Folic Acid 1 each PO DAILY 06/20/19 06/25/19 History [Centrum Women Tablet] Red Yeast Rice 600 mg PO DAILY 06/20/19 06/25/19 History lisinopriL [Zestril] 10 mg PO DAILY 06/20/19 06/25/19 History Lidocaine 5% Patch [Lidoderm 5% 1 patch TOPICAL DAILY PRN 10 Days 04/07/20 Rx Patch] #10 patch Allergies Allergy/AdvReac Type Severity Reaction Status Date / Time No Known Allergies Allergy Verified 08/16/22 20:03 Physical Exam Vitals: Vital Signs Temp Pulse Resp BP Pulse Ox 08/16/22 20:00 98 F 84 20 130/74 97 Intake and Output 08/16/22 08/16/22 08/17/22 14:59 22:59 06:59 Other: Weight 57.606 kg Constitutional: No acute distress, conversant, pleasant Eyes: Anicteric sclerae, moist conjunctiva, Pupils equal round reactive to light ENMT: NC/AT Oropharynx clear, no erythema, or exudates Neck: Supple, FROM, no masses, or JVD No carotid bruits No thyromegaly Lungs: Clear to auscultation Clear to percussion Normal respiratory effort, no accessory muscle use Cardiovascular: Heart regular in rate and rhythm, No murmurs, gallops, or rubs No peripheral edema Abdominal: Soft Nontender, no guarding, rebound or rigidity Abdomen moving with respiration Normoactive bowel sounds No hepatomegaly, No splenomegaly No palpable mass No abdominal wall hernia noted Skin: Normal temperature, tone, texture, turgor No induration No subcutaneous nodules No rash, lesions No ulcers Extremities: No digital cyanosis No clubbing Pedal pulses intact and symmetrical Radial pulses intact and symmetrical No calf tenderness Psychiatric: Alert and oriented to person, place and time Appropriate affect fair judgement Neuro Muscles Strength 5/5 in all 4 extremities Sensation to light touch grossly present throughout Cranial nerves II-XII grossly intact No focal sensory deficits Lymphatics: no palpable cervical or supraclavicular , or inguinal lymph nodes Results CBC & Chem 7: 08/17/22 00:08 08/17/22 00:08 Labs: Abnormal Lab Results - Last 24 Hours (Table) 08/17/22 Range/Units 00:08 Sodium 136 L (137-145) mmol/L BUN 21 H (7-17) mg/dL Glucose 125 H (74-99) mg/dL Assessment and Plan Assessment: chest pain rule out ACS EKG no acute changes CXR no acute pathology trops negative X2 academic dean monitor vital signs ASA, statin cardiology consult A1c, lipid panel , TSH pain control Hypertension resume hydrochlorothiazide lisinopril Blood pressure controlled DVT prophylaxis heparin subcu 3 times a day Full code
[2022-08-17 07:28] VITALS: RESP 17; TEMP 97.8
[2022-08-17] MEDS ORDERED: HEPARIN SODIUM,PORCINE/PF 5,000 UNIT/0.5 ML SYRINGE SQ SCH (08:00)
[2022-08-17] MEDS ORDERED: NITROGLYCERIN SL TABS 0.4 MG TAB SUBLINGUAL PRN (08:09)
[2022-08-17] MEDS ORDERED: ASPIRIN 325 MG TAB PO STA (08:09)
[2022-08-17] MEDS ORDERED: ALPRAZolam 0.25 MG TAB PO PRN (08:09)
[2022-08-17] MEDS ORDERED: ATORVASTATIN 80 MG TAB PO STA (08:09)
[2022-08-17] MEDS ORDERED: ALPRAZolam 0.5 MG TAB PO PRN (08:09)
[2022-08-17] MEDS ORDERED: lisinopriL 10 MG TAB PO SCH (09:00)
[2022-08-17] MEDS ORDERED: ATORVASTATIN 40 MG TAB PO SCH (09:00)
[2022-08-17] MEDS ORDERED: hydroCHLOROthiazide 25 MG TAB PO SCH (09:00)
[2022-08-17] MEDS: SODIUM CHLORIDE 0.9% 1,000 ML IV SCH ×2 (09:11→09:17)
[2022-08-17 09:37] LABS: Chol/HDL Ratio 3.39 Ratio; LDL Cholesterol,Calculated 147.6 mg/dL (0.0-131.0)
[2022-08-17] MEDS ORDERED: VERAPAMIL 2.5 MG/ML 2 ML AMP ONE (11:21)
[2022-08-17] MEDS ORDERED: fentaNYL (PF) 50 MCG/ML 2 ML AMP ONE (11:21)
[2022-08-17] MEDS ORDERED: HEPARIN SODIUM 1,000 UN/ML (10ML VL) ONE (11:21)
[2022-08-17] MEDS ORDERED: IV FLUID CONTINUATION 1,000 ML IV ONE (11:26)
[2022-08-17] MEDS ORDERED: fentaNYL (PF) 50 MCG/ML 2 ML AMP IVP ONE (11:34)
[2022-08-17] MEDS ORDERED: MIDAZOLAM 2 MG/2 ML VIAL IVP ONE (11:35)
[2022-08-17] MEDS ORDERED: LIDOCAINE 1% INJ 10MG/ML (30 ML VIAL-PF) SQ ONE (11:36)
[2022-08-17] MEDS ORDERED: VERAPAMIL SYRINGE (5 MG/10 ML) INTRAARTER ONE (11:39)
[2022-08-17] MEDS ORDERED: HEPARIN SODIUM 1,000 UN/ML (10ML VL) IVP ONE (11:43)
[2022-08-17] MEDS ORDERED: IOPAMIDOL-370 125ML BTL INJ ONE (11:49)
--- NOTE | 2022-08-17 13:56 | P.PN ---
Subjective Progress Note Date: 08/17/22 Hospital course: Patient is a very pleasant 56-year-old female with a past medical history of hypertension. She presented to the emergency department with a chief complaint of exertional chest pain beginning approximately 2 weeks ago and progressively worsening. Patient reports this pain comes on with exertion and is relieved by rest. She described this pain as a squeezing/tightening sensation. She underwent full evaluation in the emergency department. EKG was completed showi ng normal sinus rhythm at 76 bpm with no noted T-wave or ST abnormalities. Chest x-ray negative for acute cardiopulmonary process. CBC and CMP showing no significant abnormalities. Troponin negative at less than 0.012. ProBNP 30. Patient was admitted under our services with consultation to cardiology. Troponins were trended throughout the night all negative at less than 0.0123 draws. Echocardiogram was completed showing normal left ventricular function with no reported valvular or structural abnormalities. Patient being taken to cardiac cath this morning. Physical exam: Patient seen and fully evaluated at bedside this morning. Patient currently free from any chest pain or complaints at this time. Patient reports pain only present upon exertion. Patient currently denies having any headache, lightheadedness, dizziness, palpitations, shortness of breath, or any other complaints. Vital signs reviewed and stable. General: Nontoxic, no distress and appears stated age. Derm: Skin warm and dry, normal coloration for ethnicity. Head: Atraumatic, normocephalic and symmetric. Eyes: EOMs intact, no lid lag, and anicteric sclera Mouth: no lip lesions, mucus membranes moist Cardiovascular: regular rate and rhythm with normal S1S2, no murmur, positive posterior tibial pulses bilaterally, and cap refill < 2 seconds. Lungs: Respirations even, regular, and unlabored on room air. Lungs CTA bilaterally, no rhonchi, no rales, no wheezing, and no accessory muscle usage. Abdominal: soft, nontender to palpation, no guarding, no appreciable organomegaly Ext: ROM intact. No gross muscle atrophy, no edema, no contractures Neuro: Speech clear, face symmetrical and CN II-XII grossly intact with no noted focal neuro deficits Psych: Alert and oriented to person, place, time, and situation. Appropriate and pleasant affect. Assessment and Plan of Care: Chest pain, rule out acute coronary event -Cardiology following, taking patient for cardiac cath this morning. -Telemetry monitoring -Troponins negative. -Cardiac diet -Lipid profile with a.m. labs. -Echocardiogram showing normal left ventricular function with no reported valvular structural abnormalities. Hypertension -Monitor vital signs and continue daily medication regimen with hydrochlorothiazide and lisinopril. CODE STATUS: Full code DVT prophylaxis: Heparin Discussed with: Patient, cardiology, and RN Anticipated discharge date: Later today versus tomorrow pending outcome of cardiac cath Anticipated discharge place: Clinical course to determine A total of 33 minutes was spent on the care of this complex patient more than 50% of the time was spent in counseling and care coordination. Objective - Vital Signs Vital signs: Vital Signs Temp 97.8 F 08/17/22 07:27 Pulse 82 08/17/22 07:27 Resp 17 08/17/22 07:27 BP 121/83 08/17/22 07:27 Pulse Ox 99 08/17/22 07:27 FiO2 Intake & Output 08/16/22 08/17/22 08/17/22 18:59 06:59 18:59 Weight 57.606 kg - Labs CBC & Chem 7: 08/17/22 00:08 08/17/22 00:08 Labs: Abnormal Lab Results - Last 24 Hours (Table) 08/17/22 08/17/22 08/17/22 Range/Units 00:08 05:21 05:21 Sodium 136 L (137-145) mmol/L BUN 21 H (7-17) mg/dL Glucose 125 H (74-99) mg/dL Hemoglobin A1c 6.2 H (0.0-6.0) % Cholesterol 246.00 H (0.00-200.00) mg/dL LDL Cholesterol, Calc 147.6 H (0.0-131.0) mg/dL HDL Cholesterol 72.60 H (40.00-60.00) mg/dL
--- NOTE | 2022-08-17 13:56 | P.DS ---
Providers Date of admission: 08/17/22 00:04 Expected date of discharge: 08/17/22 Attending physician: Brody Clements MD Consults: 08/17/22 01:36 Consult Physician Urgent Consulting Provider: Marga Cornejo Consult Reason/Comments: Exertional chest discomfort Do you want consulting provider notified?: Yes, Notify in am [facility] Course: Discharge Diagnosis: Chest pain, acute coronary event ruled out. EKG showing normal sinus rhythm. Troponins negative. Echocardiogram showing normal left ventricular function with no reported valvular structural abnormalities. Cardiac Negative. Hypertension. Monitor vital signs and continue daily medication regimen with hydrochlorothiazide and lisinopril. Hyperlipidemia. Lipid profile revealing elevated cholesterol of 246 and LDL of 147.6. Patient was started on atorvastatin 40 mg daily. Elevated Hemoglobin A1c 6.2%. Discussed findings with patient and encouraged her to follow a carb consistent and heart healthy diet and that she will need follow-up with her PCP for long-term monitoring and management. Hospital Course: Patient is a very pleasant 56-year-old female with a past medical history of hypertension. She presented to the emergency department with a chief complaint of exertional chest pain beginning approximately 2 weeks ago and progressively worsening. Patient reports this pain comes on with exertion and is relieved by rest. She described this pain as a squeezing/tightening sensation. She underwent full evaluation in the emergency department. EKG was completed showing normal sinus rhythm at 76 bpm with no noted T-wave or ST abnormalities. Chest x-ray negative for acute cardiopulmonary process. CBC and CMP showing no significant abnormalities. Troponin negative at less than 0.012. ProBNP 30. Patient was admitted under our services with consultation to cardiology. Troponins were trended throughout the night all negative at less than 0.0123 draws. Echocardiogram was completed showing normal left ventricular function with no reported valvular or structural abnormalities. Patient was taken for cardiac catheterization which was reported to be negative for obstructive cardiovascular disease. Lipid profile revealing elevated cholesterol of 246 and LDL of 147.6. Patient was started on atorvastatin 40 mg daily. Hemoglobin A1c 6.2% patient to follow a carb consistent and heart healthy diet and will need follow-up with her PCP for long-term monitoring and management. Patient medically stable for discharge at this time and to follow up outpatient with PCP and cardiology as directed. Physical exam: Vital signs reviewed and stable. General: Nontoxic, no distress and appears stated age. Derm: Skin warm and dry, normal coloration for ethnicity. Head: Atraumatic, normocephalic and symmetric. Eyes: EOMs intact, no lid lag, and anicteric sclera Mouth: no lip lesions, mucus membranes moist Cardiovascular: regular rate and rhythm with normal S1S2, no murmur, positive posterior tibial pulses bilaterally, and cap refill < 2 seconds. Lungs: Respirations even, regular, and unlabored on room air. Lungs CTA bilaterally, no rhonchi, no rales, no wheezing, and no accessory muscle usage. Abdominal: soft, nontender to palpation, no guarding, no appreciable organomegaly Ext: ROM intact. No gross muscle atrophy, no edema, no contractures Neuro: Speech clear, face symmetrical and CN II-XII grossly intact with no noted focal neuro deficits Psych: Alert and oriented to person, place, time, and situation. Appropriate and pleasant affect. A total of 31 minutes of time were spent preparing this complex discharge summary. Pt was discharged on 05/06/22 at 1:58 PM. Patient Condition at Discharge: Stable Plan - Discharge Summary New Discharge Prescriptions: New Atorvastatin [Lipitor] 40 mg PO DAILY 30 Days #30 tab Continue Loratadine [Claritin] 10 mg PO DAILY hydroCHLOROthiazide [Hydrodiuril] 25 mg PO DAILY lisinopriL [Zestril] 10 mg PO DAILY Cholecalciferol [Vitamin D3 (25 Mcg = 1000 Iu)] 25 mcg PO DAILY Krill Oil 500 mg PO DAILY Iodine Drops 1 drop PO DAILY Discharge Medication List Loratadine [Claritin] 10 mg PO DAILY 05/02/16 [History] hydroCHLOROthiazide [Hydrodiuril] 25 mg PO DAILY 05/02/16 [History] lisinopriL [Zestril] 10 mg PO DAILY 06/20/19 [History] Atorvastatin [Lipitor] 40 mg PO DAILY 30 Days #30 tab 08/17/22 [Rx] Cholecalciferol [Vitamin D3 (25 Mcg = 1000 Iu)] 25 mcg PO DAILY 08/17/22 [History] Iodine Drops 1 drop PO DAILY 08/17/22 [History] Krill Oil 500 mg PO DAILY 08/17/22 [History] Follow up Appointment(s)/Referral(s): Efrain Madison DO [Primary Care Provider] - 1-2 days (APPOINTMENT MADE ON @ 3:00PM IN THE [facility] OFFICE) Delta Infante MD [STAFF PHYSICIAN] - 1 Week (THE OFFICE WILL CALL YOU WITH AN APPOINTMENT DATE AND TIME) Patient Instructions/Handouts: *Surgery [facility] - After Heart Catheterization - Addictions Counselor Assistant Instructions, Chest Pain (DC), Moderate Sedation (ED), After Radial Heart Catheterization (GEN) Activity/Diet/Wound Care/Special Instructions: Activity: As tolerated. Take breaks as needed. Diet: Heart healthy and carb consistent diet. Avoid salts, or foods with hidden salts such as canned or boxed foods and frozen dinners. Extra salt makes your heart work harder and traps the fluid in your body for longer. Special Instructions: Take all of your medications as directed and remember to keep all of your doctor's appointments and follow-up as needed. Thank you for allowing us to participate in your care, it was truly a pleasure having you for our patient!!! *NO LIFTING, PUSHING, OR PULLING ANYTHING OVER 5 POUNDS FOR 5 DAYS *NO DRIVING FOR 3 DAYS *YOU CAN SHOWER TOMORROW BUT DO NOT SUBMERSE YOUR PUNCTURE SITE IN WATER FOR A FEW DAYS TO PREVENT INFECTION - SO NO TUB BATHS, POOLS, HOT TUBS, DISHES...ETC *ANY SIGNS OF BLEEDING (HARDNESS, SWELLING, OR EXCESSIVE BRUISING) HOLD DIRECT PRESSURE ON YOUR PUNCTURE SITE AND COME TO THE NEAREST EMERGENCY ROOM TO GET YOUR PUNCTURE SITE LOOKED AT - DO NOT DRIVE YOURSELF! EITHER CALL EMS OR HAVE SOMEONE DRIVE YOU. Discharge Disposition: HOME SELF-CARE
[2022-08-17 15:19] VITALS: BP 117/65; PULSE 76
--- NOTE | 2022-08-17 17:42 | CA ---
Transthoracic Echo Report Name: Ronel Cabrera Age: 56 Gender: F : 1965 Exam Date: 08/17/2022 10:11 Exam Location: [facility] Ht (in): 60 Wt (lb): 127 Ordering Physician: Maryuri Moody Attending/Referring Phys: Plastics Seasoner Operator Khushi Dougherty RDCS Procedure CPT: Indications: chest discomfort Cardiac Hx: Technical Quality: Fair Contrast 1: Total Dose (mL): Contrast 2: Total Dose (mL): MEASUREMENTS (Male / Female) Normal Values 2D ECHO LV Diastolic Diameter PLAX 3.7 cm 4.2 - 5.9 / 3.9 - 5.3 cm LV Systolic Diameter PLAX 2.2 cm IVS Diastolic Thickness 1.0 cm 0.6 - 1.0 / 0.6 - 0.9 cm LVPW Diastolic Thickness 1.0 cm 0.6 - 1.0 / 0.6 - 0.9 cm LV Relative Wall Thickness 0.6 RV Internal Dim ED PLAX 3.3 cm LA Volume 42.9 cm??? 18 - 58 / 22 - 52 cm??? M-MODE Aortic Root Diameter MM 2.5 cm LA Systolic Diameter MM 2.6 cm LA Ao Ratio MM 1.0 AV Cusp Separation MM 2.1 cm DOPPLER AV Peak Velocity 137.9 cm/s AV Peak Gradient 7.6 mmHg AI Peak Velocity 380.6 cm/s AI Peak Gradient 57.9 mmHg AI Pressure Half Time 649.9 ms MV Area PHT 2.9 cm??? Mitral E Point Velocity 77.3 cm/s Mitral A Point Velocity 85.8 cm/s Mitral E to A Ratio 0.9 MV Deceleration Time 262.8 ms TR Peak Velocity 237.9 cm/s TR Peak Gradient 22.6 mmHg Right Ventricular Systolic Press 27.4 mmHg FINDINGS Left Ventricle Mildly increased left ventricular wall thickness. Normal Left ventricular size, systolic function with no obvious regional wall motion abnormalities. Normal Left ventricular diastolic filling pattern. Right Ventricle Normal right ventricular size. Right Atrium Normal right atrial size. Left Atrium Normal left atrial size. No evidence for an atrial septal defect. Mitral Valve Structurally normal mitral valve. Trace to mild mitral regurgitation. Aortic Valve Trileaflet aortic valve. No aortic stenosis. Mild aortic regurgitation. Tricuspid Valve Structurally normal tricuspid valve. Mild tricuspid regurgitation. Pulmonic Valve Structurally normal pulmonic valve. Trace pulmonic regurgitation. Pericardium Normal pericardium. Aorta Normal size aortic root and proximal ascending aorta. CONCLUSIONS Normal LV function Previewed by: Dr. Delta Infante MD (Electronically Signed) Final Date: 17 August 2022 17:41
--- NOTE | 2022-08-17 20:47 | CONS ---
CONSULTATION CHIEF COMPLAINT: Chest pain. HISTORY OF PRESENT ILLNESS: Ronel is a 56-year-old lady with history of hypertension who presented to hospital complaining of chest discomfort. She describes intermittent episodes of precordial chest pressure, mild to moderate intensity, describes it is a pressure-like sensation that comes on with exertion and is relieved with rest. She also had some discomfort in the left shoulder area, was concerned yesterday, came to hospital and is admitted with a diagnosis of unstable angina. At the time of my evaluation, she appears comfortable at rest and free of chest pain. EKG shows sinus rhythm without significant ST-T wave changes. Cardiac enzymes have been negative. The patient's clinical presentation is suggestive of unstable angina with very typical symptoms of chest pain. Due to this, I am advising the patient to undergo cardiac catheterization for further evaluation. I explained risks, benefits, and alternatives including a stress test. PAST MEDICAL HISTORY: Significant for hypertension. MEDICATIONS: Include hydrochlorothiazide and lisinopril 10 mg daily. ALLERGIES: No known drug allergies. FAMILY HISTORY: Negative for premature coronary artery disease. SOCIAL HISTORY: Significant for smoking but she quit many years ago. REVIEW OF SYSTEMS: review of systems has been performed, pertinence are as documented. PHYSICAL EXAMINATION: GENERAL: Comfortable at rest. VITAL SIGNS: Stable. NECK: There is no jugular venous distention. Carotid upstroke is normal. There is no bruit. CHEST: Reveals good air entry bilaterally. HEART: Reveals first and second heart sounds. No gallop, no murmur, no rub. ABDOMEN: Soft, nontender. EXTREMITIES: Did not reveal any edema. Peripheral pulses are felt. LABORATORY DATA: Labs show that her total cholesterol is 240, LDL is 147, HDL is 72, 3 sets of troponins are negative, creatinine is 0.5, hemoglobin is 13.3, platelet count is 300. ASSESSMENT: 1. Unstable angina. 2. Hypertension. PLAN: Patient will undergo cardiac catheterization for further evaluation. She had been explained of risks, benefits, and alternatives, understood and accepted. MMODL / IJN: [id number] /
--- NOTE | 2022-08-17 22:46 | CC ---
CARDIAC CATHETERIZATION REPORT INDICATION: Unstable angina. PROCEDURE NOTE: After obtaining informed consent, left heart catheterization and coronary angiogram were performed via the right radial artery using sounds size 3.5 right and left Lewis catheters and a pigtail catheter for hemodynamics. The patient tolerated the procedure well without any obvious immediate complications. She received moderate conscious sedation. Total sedation time was 15 minutes. Right radial artery access was obtained using a micropuncture needle and with Seldinger technique, a sheath was advanced into the right radial artery. Catheters and wire were floated into the ascending aorta under fluoroscopic guidance. The patient tolerated the procedure well without any obvious immediate complications. Patient received moderate conscious sedation. Total sedation time was 15 minutes. 5 mg of verapamil and 4000 units of heparin were given per protocol. A TR band was used for hemostasis at the end of the procedure. FINDINGS: 1. Hemodynamics: Left ventricular end-diastolic pressure is 8 mm. There is no significant gradient across the aortic valve. 2. Left ventriculogram: Left ventriculogram is not performed. 3. Angiographic data. a.Left main coronary artery: Left main coronary artery is a short vessel and is free of significant stenosis. Divides into left anterior descending coronary artery and circumflex coronary artery. LAD and its branches, circumflex, coronary artery and its branches are free of significant stenosis. Right coronary artery is a dominant vessel and is free of significant disease. CONCLUSIONS: 1. Normal coronary arteries. 2. Normal left ventricular end-diastolic pressure. PLAN: The patient's chest pain is noncardiac in origin and her management is going to be in the form of risk factor modification. MMODL / IJN: [id number] /
[2022-08-18] MEDS ORDERED: HEPARIN SODIUM,PORCINE 2,500 UNIT in SODIUM CHLORIDE 0.9% 250 ML IRRIGATION PRN (07:00)
[2022-08-18] MEDS ORDERED: HEPARIN SODIUM,PORCINE 10,000 UNIT in SODIUM CHLORIDE 0.9% 1,000 ML IRRIGATION PRN (07:00)
[2022-08-18] MEDS ORDERED: ATORVASTATIN 40 MG TAB PO SCH (09:00)
== END 2022-08-17 16:07 | disposition home or self-care (01) ==
LOC: EC 19:55 → 6NMEDSUR 08-17 00:04
PROVIDERS: ADMIT Internal Medicine; ATTEND Internal Medicine
DX: R07.89 Other chest pain (principal); I10 Essential (primary) hypertension; E78.5 Hyperlipidemia, unspecified; D58.2 Other hemoglobinopathies; E78.00 Pure hypercholesterolemia, unspecified; R61 Generalized hyperhidrosis; R06.00 Dyspnea, unspecified; R53.83 Other fatigue; H40.9 Unspecified glaucoma; Z79.899 Other long term (current) drug therapy; Z98.891 History of uterine scar from previous surgery; Z87.19 Personal history of other diseases of the digestive system; Z98.890 Other specified postprocedural states; F17.290 Nicotine dependence, other tobacco product, uncomplicated; Z80.0 Family history of malignant neoplasm of digestive organs
CPT/HCPCS: 96372; 99285; 36415; 93005; 93306; 93458; 83880; 80061; 80053; 84443; 83735; 84484; 85025; 83036; 71045; G0378; C1769 ×2; C1894; J2250; J2001; J3010; J1644 ×2; Q9967

== ENCOUNTER 2023-10-28 18:32 | Emergency (ER) | payer BC ==
[2023-10-28 18:56] VITALS: TEMP 97.7
--- NOTE | 2023-10-28 18:56 | ED ---
General Adult HPI - General Source: patient, RN notes reviewed <Katie Silva - Last Filed: 10/28/23 18:51> <Will Shipley - Last Filed: 10/29/23 00:04> - General Stated complaint: Heaviness in chest,sob Time Seen by Provider: 10/28/23 18:50 - History of Present Illness Initial comments: 58-year-old female presents emergency department chief complaint of chest tightness. She states this started earlier today but has since resolved. She does admit to palpitations associated with this which continue to occur. He does state that she feels it is difficult to catch her breath. (Katie Silva) Dictation was produced using [employer] dictation software. please excuse any grammatical, word or spelling errors. Chief Complaint: 58-year-old female presents to the rest of vital chest pressure palpitations History of Present Illness: This 58-year-old female presents with chest pressure and palpitations. She states that it started after her son's wedding on the drive home. States it lasted for several minutes. Patient is no history of cardiac disease she did have a negative heart cath several years ago. Patient otherwise denies any history of high cholesterol diabetes. She does have a history of hypertension. Patient states that she didn't report some nausea with her symptoms. She is not sure if it was indigestion. Did not radiate to her arms. No diaphoresis. Patient is asymptomatic currently at the bedside. The ROS documented in this emergency department record has been reviewed and confirmed by me. Those systems with pertinent positive or negative responses have been documented in the HPI. All other systems are other negative and/or noncontributory. (Will Shipley) - Related Data Home Medications Medication Instructions Recorded Confirmed lisinopriL [Zestril] 10 mg PO DAILY 06/20/19 10/28/23 Cholecalciferol [Vitamin D3 (25 25 mcg PO DAILY 08/17/22 10/28/23 Mcg = 1000 Iu)] Krill Oil 500 mg PO DAILY 08/17/22 10/28/23 Atorvastatin [Lipitor] 10 mg PO HS 10/28/23 10/28/23 Elderberry Chewable 2 tab PO DAILY 10/28/23 10/28/23 Allergies Allergy/AdvReac Type Severity Reaction Status Date / Time No Known Allergies Allergy Verified 10/28/23 23:02 Review of Systems ROS Other: All systems not noted in ROS Statement are negative. <Katie Silva - Last Filed: 10/28/23 18:51> ROS Other: All systems not noted in ROS Statement are negative. <Will Shipley - Last Filed: 10/29/23 00:04> ROS Statement: Those systems with pertinent positive or pertinent negative responses have been documented in the HPI. Past Medical History Past Medical History: Hypertension Additional Past Medical History / Comment(s): DDD, HX OF BLOOD IN STOOL. History of Any Multi-Drug Resistant Organisms: None Reported Past Surgical History: Section Additional Past Surgical History / Comment(s): X3, ENDOMETRIOSIS SURGERY. bilateral eye procedures for glaucoma Past Anesthesia/Blood Transfusion Reactions: No Reported Reaction Past Psychological History: No Psychological Hx Reported Smoking Status: Vaper Past Alcohol Use History: Occasional Past Drug Use History: None Reported - Past Family History Father Family Medical History: Cancer Additional Family Medical History / Comment(s): ESOPHAGEAL CANCER <Katie Silva - Last Filed: 10/28/23 18:51> General Exam <Katie Silva - Last Filed: 10/28/23 18:51> <Will Shipley - Last Filed: 10/29/23 00:04> - General Exam Comments Initial Comments: Visual Physical Exam Vital signs reviewed General: Well-appearing, nontoxic, no acute distress. Head: Normocephalic, atraumatic Eyes: PERRLA, EOMI ENT: Airway patent Chest: Nonlabored breathing Skin: No visual rash, normal skin tone Neuro: Alert and oriented 3 Musculoskeletal: No gross abnormalities (Katie Silva) PHYSICAL EXAM: General Impression: Alert and oriented x3, not in acute distress HEENT: Normocephalic atraumatic, extra-ocular movements intact, pupils equal and reactive to light bilaterally, mucous membranes moist. Cardiovascular: Heart regular rate and rhythm Chest: Able to complete full sentences, no retractions, no tachypnea Abdomen: abdomen soft, non-tender, non-distended, no organomegaly Musculoskeletal: Pulses present and equal in all extremities, no peripheral edema Motor: no focal deficits noted Neurological: CN II-XII grossly intact, no focal motor or sensory deficits noted Skin: Intact with no visualized rashes Psych: Normal affect and mood (Will Shipley) Course Vital Signs 10/28/23 10/28/23 10/28/23 18:50 22:30 23:00 Temperature 97.7 F Pulse Rate 110 H 90 89 Respiratory 20 13 14 Rate Blood Pressure 116/70 113/71 113/71 O2 Sat by Pulse 95 95 95 Oximetry EKG Findings - EKG Comments: EKG Findings:: My EKG interpretation: Ventricular rate 100, sinus tachycardia,. 132, QRS 90, QTC 400. No IL prolongation, no QTC prolongation, no ST or T-wave changes noted. Overall, this EKG is unremarkable <Will Shipley - Last Filed: 10/29/23 00:04> Medical Decision Making <Katie Silva - Last Filed: 10/28/23 18:51> - Lab Data Result diagrams: 10/28/23 19:01 10/28/23 19:01 <Will Shipley - Last Filed: 10/29/23 00:04> - Medical Decision Making Quick note preformed by Katie Silva PA-C (Katie Silva) Was pt. sent in by a medical professional or institution (JANA Ramos, CLERK GENERAL, urgent care, hospital, or [facility]...) When possible be specific @ -No Did you speak to anyone other than the patient for history (EMS, parent, family, police, friend...)? What history was obtained from this source @ -No Did you review nursing and triage notes (agree or disagree)? Why? @ -I reviewed and agree with nursing and triage notes Were old charts reviewed (outside hosp., previous admission, EMS record, old EKG, old radiological studies, urgent care reports/EKG's, [facility] records)? Report findings @ -No old charts were reviewed Differential Diagnosis (chest pain, altered mental status, abdominal pain women, abdominal pain men, vaginal bleeding, musculoskeletal, weakness, fever, dyspnea, syncope, headache, dizziness, GI bleed, back pain, seizure, CVA, palpatations, mental health)? @ -Differential Chest Pain: Stable Angina, Unstable Angina, STEMI, NSTEMI Aortic Dissection, Pneumothorax, Musculoskeletal, Esophageal Spasm GERD, Cholecystitis, Pancreatitis, Zoster, this is not meant to be an all-inclusive list. EKG interpreted by me (3pts min.). @ -As above X-rays interpreted by me (1pt min.). @ -Chest x-ray is nonacute CT interpreted by me (1pt min.). @ -None done U/S interpreted by me (1pt. min.). @ -None done What testing was considered but not performed or refused? (CT, X-rays, U/S, labs)? Why? @ -None What meds were considered but not given or refused? Why? @ -None Did you discuss the management of the patient with other professionals (professionals i.e. , PA, CLERK GENERAL, lab, RT, psych nurse, social professionals, pipe blanks cut off saw operator, teacher, upscale security officer, case packer)? Give summary @ -No Was smoking cessation discussed for >3mins.? @ -No Was critical care preformed (if so, how long)? @ -No Were there social determinants of health that impacted care today? How? (Homelessness, low income, unemployed, alcoholism, drug addiction, transportation, low edu. Level, literacy, decrease access to med. care, [facility], rehab)? @ -No Was there de-escalation of care discussed even if they declined (Discuss DNR or withdrawal of care, Hospice)? DNR status @ -No What co-morbidities impacted this encounter? (DM, HTN, Smoking, COPD, CAD, Cancer, CVA, ARF, Chemo, Hep., AIDS, mental health diagnosis, sleep apnea, morbid obesity)? @ -None Was patient admitted / discharged? Hospital course, mention meds given and route, prescriptions, significant lab abnormalities, going to OR and other pertinent info. @ -[id number] female presents to the emergency department with chest pressure and palpitations. Patient has no cardiac history. Vital signs upon arrival are within acceptable limits. EKG is unremarkable. Laboratory evaluation is unremarkable. Disposition options were discussed. Patient was offered observation admission for cardiac monitoring. She would prefer to have second troponin drawn and to follow-up with her primary care doctor for outpatient stress test. 2 troponins are negative. Patient discharged. He is given aspirin. Given return precautions. Undiagnosed new problem with uncertain prognosis? @ -No Drug Therapy requiring intensive monitoring for toxicity (Heparin, Nitro, Insulin, Cardizem)? @ -No Were any procedures done? @ -No Diagnosis/symptom? Acute, or Chronic, or Acute on Chronic? Uncomplicated (without systemic symptoms) or Complicated (systemic symptoms)? @ -Chest pain Side effects of treatment? @ -No Exacerbation, Progression, or Severe Exacerbation? @ -No Poses a threat to life or bodily function? How? (Chest pain, USA, SC, pneumonia, PE, COPD, DKA, ARF, appy, cholecystitis, CVA, Diverticulitis, Homicidal, S uicidal, threat to staff... and all critical care pts) @ -yes (Will Shipley) - Lab Data Lab Results 10/28/23 10/28/23 10/28/23 Range/Units 19:01 19:01 19:01 WBC 9.0 (3.8-10.6) k/uL RBC 4.28 (3.80-5.40) m/uL Hgb 12.9 (11.4-16.0) gm/dL Hct 36.9 (34.0-46.0) % MCV 86.2 (80.0-100.0) fL MCH 30.1 (25.0-35.0) pg MCHC 35.0 (31.0-37.0) g/dL RDW 13.3 (11.5-15.5) % Plt Count 322 (150-450) k/uL MPV 7.9 Neutrophils % 72 % Lymphocytes % 20 % Monocytes % 5 % Eosinophils % 2 % Basophils % 0 % Neutrophils # 6.5 (1.3-7.7) k/uL Lymphocytes # 1.8 (1.0-4.8) k/uL Monocytes # 0.4 (0-1.0) k/uL Eosinophils # 0.2 (0-0.7) k/uL Basophils # 0.0 (0-0.2) k/uL PT 10.2 (10.0-12.5) sec INR 0.9 (<1.2) APTT 22.4 (22.0-30.0) sec Sodium 141 (137-145) mmol/L Potassium 3.5 (3.5-5.1) mmol/L Chloride 105 (98-107) mmol/L Carbon Dioxide 23 (22-30) mmol/L Anion Gap 13 mmol/L BUN 22 H (7-17) mg/dL Creatinine 0.77 (0.52-1.04) mg/dL Est GFR (CKD-EPI)AfAm >90 (>60 ml/min/1.73 sqM) Est GFR (CKD-EPI)NonAf 84 (>60 ml/min/1.73 sqM) Glucose 128 H (74-99) mg/dL Calcium 10.4 H (8.4-10.2) mg/dL Magnesium 2.1 (1.6-2.3) mg/dL Total Bilirubin 0.6 (0.2-1.3) mg/dL AST 26 (14-36) U/L ALT 22 (4-34) U/L Alkaline Phosphatase 68 (38-126) U/L Troponin I (0.000-0.034) ng/mL Total Protein 7.4 (6.3-8.2) g/dL Albumin 4.7 (3.5-5.0) g/dL 10/28/23 10/28/23 Range/Units 19:01 23:10 WBC (3.8-10.6) k/uL RBC (3.80-5.40) m/uL Hgb (11.4-16.0) gm/dL Hct (34.0-46.0) % MCV (80.0-100.0) fL MCH (25.0-35.0) pg MCHC (31.0-37.0) g/dL RDW (11.5-15.5) % Plt Count (150-450) k/uL MPV Neutrophils % % Lymphocytes % % Monocytes % % Eosinophils % % Basophils % % Neutrophils # (1.3-7.7) k/uL Lymphocytes # (1.0-4.8) k/uL Monocytes # (0-1.0) k/uL Eosinophils # (0-0.7) k/uL Basophils # (0-0.2) k/uL PT (10.0-12.5) sec INR (<1.2) APTT (22.0-30.0) sec Sodium (137-145) mmol/L Potassium (3.5-5.1) mmol/L Chloride (98-107) mmol/L Carbon Dioxide (22-30) mmol/L Anion Gap mmol/L BUN (7-17) mg/dL Creatinine (0.52-1.04) mg/dL Est GFR (CKD-EPI)AfAm (>60 ml/min/1.73 sqM) Est GFR (CKD-EPI)NonAf (>60 ml/min/1.73 sqM) Glucose (74-99) mg/dL Calcium (8.4-10.2) mg/dL Magnesium (1.6-2.3) mg/dL Total Bilirubin (0.2-1.3) mg/dL AST (14-36) U/L ALT (4-34) U/L Alkaline Phosphatase (38-126) U/L Troponin I <0.012 <0.012 (0.000-0.034) ng/mL Total Protein (6.3-8.2) g/dL Albumin (3.5-5.0) g/dL Disposition <Katie Silva - Last Filed: 10/28/23 18:51> Is patient prescribed a controlled substance at d/c from ED?: No Time of Disposition: 00:04 <Will Shipley - Last Filed: 10/29/23 00:04> Clinical Impression: Chest pain Disposition: HOME SELF-CARE Condition: Fair Instructions (If sedation given, give patient instructions): Heart Palpitations (ED) Referrals: Efrain Madison DO [Primary Care Provider] - 1-2 days
[2023-10-28 19:31] LABS: Basophils % (A) 0 %; Eosinophils # (A) 0.2 k/uL (0-0.7); Eosinophils % (A) 2 %; HCT 36.9 % (34.0-46.0); HGB 12.9 gm/dL (11.4-16.0); Lymphocytes # (A) 1.8 k/uL (1.0-4.8); Lymphocytes % (A) 20 %; MCH 30.1 pg (25.0-35.0); MCV 86.2 fL (80.0-100.0); Mean Platelet Volume 7.9; Monocytes # (A) 0.4 k/uL (0-1.0); Monocytes % (A) 5 %; Neutrophils # (A) 6.5 k/uL (1.3-7.7); Neutrophils % (A) 72 %; Platelet Count 322 k/uL (150-450); RBC 4.28 m/uL (3.80-5.40); RDW 13.3 % (11.5-15.5)
[2023-10-28 19:32] LABS: ALT 22 U/L (4-34); AST 26 U/L (14-36); African American GFR (CKD) >90 (>60 ml/min/1.73 sqM); Albumin 4.7 g/dL (3.5-5.0); Alkaline Phosphatase 68 U/L (38-126); Anion Gap 13 mmol/L; Blood Urea Nitrogen 22 mg/dL (7-17); Calcium 10.4 mg/dL (8.4-10.2); Carbon Dioxide 23 mmol/L (22-30); Chloride 105 mmol/L (98-107); Glucose 128 mg/dL (74-99); Magnesium 2.1 mg/dL (1.6-2.3); Non-African American GFR(CKD) 84 (>60 ml/min/1.73 sqM); Potassium 3.5 mmol/L (3.5-5.1); Sodium 141 mmol/L (137-145); Total Bilirubin 0.6 mg/dL (0.2-1.3); Total Protein 7.4 g/dL (6.3-8.2)
[2023-10-28 19:35] LABS: INR 0.9 (<1.2); Partial Thromboplastin Time 22.4 sec (22.0-30.0); Prothrombin Time 10.2 sec (10.0-12.5)
--- NOTE | 2023-10-28 20:18 | XR ---
EXAMINATION TYPE: XR chest 2V DATE OF EXAM: 10/28/2023 COMPARISON: 08/17/2022 INDICATION: Dysrhythmia TECHNIQUE: Frontal and lateral views of the chest are obtained. FINDINGS: The heart size is normal. The pulmonary vasculature is normal. The lungs are clear. IMPRESSION: 1. No acute pulmonary process.
[2023-10-29] MEDS ORDERED: ASPIRIN 81 MG PO STA (00:02)
[2023-10-29 00:47] VITALS: BP 118/71; PULSE 91; RESP 15
== END 2023-10-29 00:22 | disposition home or self-care (01) ==
LOC: EC 18:32
DX: R07.89 Other chest pain (principal); R00.0 Tachycardia, unspecified; I10 Essential (primary) hypertension; F17.290 Nicotine dependence, other tobacco product, uncomplicated; Z79.899 Other long term (current) drug therapy
CPT/HCPCS: 36415; 71046; 80053; 83735; 84484; 85025; 85610; 85730; 93005; 99285

== ENCOUNTER → 2023-11-14 | Outpatient (CLI) | payer BC ==
--- NOTE | 2023-11-14 15:31 | XR ---
EXAMINATION TYPE: XR knee complete LT DATE OF EXAM: 11/14/2023 COMPARISON: None HISTORY: Pain TECHNIQUE: 3 view left knee FINDINGS: No acute fracture or dislocation. Joint spaces are preserved. No joint effusion is evident. Follow-up MRI can be performed if evaluation of soft tissues would be of benefit. IMPRESSION: 1. No acute osseous abnormality left knee
== END | disposition home or self-care (01) ==
LOC: RADXRYALE 14:56
PROVIDERS: ATTEND Physician Assistant
DX: M25.562 Pain in left knee (principal)

== ENCOUNTER → 2024-01-10 | Outpatient (CLI) | payer BC ==
--- NOTE | 2024-01-11 14:57 | MM ---
Reason for Exam: Screening (asymptomatic). Last mammogram was performed 6 year(s) and 11 month(s) ago. Patient History: Menarche at age 11. First Full-Term at age 24. Postmenopausal. 03/18/2017, MG discontinued stereo core RT on the right side. Risk Values: Patricia 5 year model risk: 1.6%. NCI Lifetime model risk: 8.1%. Prior Study Comparison: 02/22/2017 Bilateral Screening Mammogram, [facility]. 02/25/2017 Right Diagnostic Mammogram, [facility]. 01/19/2018 Right Diagnostic Mammogram, [facility]. Tissue Density: There are scattered fibroglandular densities. Findings: Analyzed By CAD. There is no suspicious group of microcalcifications or new suspicious mass. Overall Assessment: Negative, BI-RAD 1 Management: Screening Mammogram of both breasts in [address] [facility] will attempt to contact patient to return for supplemental views and ultrasound if indicated. Patient should continue monthly self-breast exams. A clinical breast exam by your physician is recommended on an annual basis. This exam should not preclude additional follow-up of suspicious palpable abnormalities. Note on Patricia scores and lifetime risk: 1. A Patricia score greater than 3% is considered moderate risk. If this is the case, consider specialist referral to assess eligibility for a risk reducing agent. 2. If overall lifetime risk for the development of breast cancer is 20% or higher, the patient may qualify for future screening with alternating mammogram and breast MRI. Electronically signed and approved by: Henry Cotton DO
== END | disposition home or self-care (01) ==
LOC: RADMAMWWP 12:59
PROVIDERS: ATTEND Family Medicine
DX: Z12.31 Encounter for screening mammogram for malignant neoplasm of breast (principal); Z78.0 Asymptomatic menopausal state
CPT/HCPCS: 77063; 77067